=== PATIENT | female | born 1945 | race Caucasian/White ===

== ENCOUNTER → 2023-07-11 08:49 | Outpatient (REF) | payer MEDICARE, SELFPAY | LOC: HWRAD 08:49 | PROVIDERS: ATTENDING PHYSICIAN Internal Medicine Geriatric Medicine | DX: E78.2 Mixed hyperlipidemia (principal); R09.89 Other specified symptoms and signs involving the circulatory and respiratory systems; Z79.890 Hormone replacement therapy; I65.22 Occlusion and stenosis of left carotid artery; I25.10 Atherosclerotic heart disease of native coronary artery without angina pectoris; F41.9 Anxiety disorder, unspecified; Z98.890 Other specified postprocedural states; M79.89 Other specified soft tissue disorders; R91.1 Solitary pulmonary nodule; E04.1 Nontoxic single thyroid nodule; Z13.89 Encounter for screening for other disorder; E55.9 Vitamin D deficiency, unspecified; C54.1 Malignant neoplasm of endometrium; C44.722 Squamous cell carcinoma of skin of right lower limb, including hip; J40 Bronchitis, not specified as acute or chronic | CPT/HCPCS: 76536 ==

== ENCOUNTER → 2023-08-15 15:15 | Outpatient (REF) | payer MEDICARE, SELFPAY | LOC: RAD 15:15 | PROVIDERS: ATTENDING PHYSICIAN Internal Medicine Geriatric Medicine | DX: E78.2 Mixed hyperlipidemia (principal); R09.89 Other specified symptoms and signs involving the circulatory and respiratory systems; Z79.890 Hormone replacement therapy; I65.22 Occlusion and stenosis of left carotid artery; I25.10 Atherosclerotic heart disease of native coronary artery without angina pectoris; F41.9 Anxiety disorder, unspecified; Z98.890 Other specified postprocedural states; M79.89 Other specified soft tissue disorders; R91.1 Solitary pulmonary nodule; E04.1 Nontoxic single thyroid nodule; E55.9 Vitamin D deficiency, unspecified; Z13.89 Encounter for screening for other disorder; C54.1 Malignant neoplasm of endometrium | CPT/HCPCS: 93880 ==

== ENCOUNTER → 2023-09-06 09:17 | Outpatient (REF) | payer MEDICARE, SELFPAY | LOC: HWWDC 09:17 | PROVIDERS: ATTENDING PHYSICIAN Obstetrics & Gynecology Gynecologic Oncology; FAMILY PHYSICIAN Internal Medicine Geriatric Medicine | DX: Z12.31 Encounter for screening mammogram for malignant neoplasm of breast (principal) | CPT/HCPCS: 77063; 77067 ==

== ENCOUNTER → 2023-11-29 08:17 | Outpatient (REF) | payer MEDICARE, SELFPAY | LOC: HWRAD 08:17 | PROVIDERS: ATTENDING PHYSICIAN Internal Medicine Geriatric Medicine | DX: Q26.6 Portal vein-hepatic artery fistula (principal) | CPT/HCPCS: 76700 ==

== ENCOUNTER → 2024-09-09 14:35 | Outpatient (REF) | payer MEDICARE, SELFPAY | LOC: HWWDC 14:35 | PROVIDERS: ATTENDING PHYSICIAN Obstetrics & Gynecology Gynecologic Oncology; FAMILY PHYSICIAN Internal Medicine Geriatric Medicine | DX: Z12.31 Encounter for screening mammogram for malignant neoplasm of breast (principal) | CPT/HCPCS: 77063; 77067 ==